=== PATIENT | male | born 1960 | race Hispanic/Latino ===

== ENCOUNTER 2017-11-23 21:56 | Inpatient (IN) | payer MEDICAID, OTHER ==
--- NOTE | 2017-11-23 22:20 | C.PDOC ---
History Of Present Illness Pt was transferred here for psychiatric admission. Pt was medically cleared at the referring facility. Time Seen by Provider: 11/23/17 22:11 Chief Complaint (Nursing): Psychiatric Evaluation History Per: Patient Onset/Duration Of Symptoms: Days Current Symptoms Are (Timing): Still Present Modifying Factor(s): Alcohol Severity: Moderate Associated Symptoms: Anxiety, Depression Additional History Per: Prior Records Past Medical History Reviewed: Historical Data, Nursing Documentation, Vital Signs Vital Signs: Last Vital Signs Temp 97.8 F 11/23/17 22:06 Pulse 71 11/23/17 22:06 Resp 20 11/23/17 22:06 BP 139/87 11/23/17 22:06 Pulse Ox 98 11/23/17 22:06 - Medical History PMH: Anxiety, COPD, Depression - [facility] Procedures PSYCHIAT DRUG THERAP NEC (06/19/13) Family History: States: Unknown Family Hx - Social History Hx Tobacco Use: Yes Hx Alcohol Use: Yes Hx Substance Use: No - Immunization History Hx Tetanus Toxoid Vaccination: Yes Hx Influenza Vaccination: Yes Hx Pneumococcal Vaccination: Yes Review Of Systems Constitutional: Negative for: Fever Cardiovascular: Negative for: Chest Pain Respiratory: Negative for: Shortness of Breath Genitourinary: Negative for: Dysuria Musculoskeletal: Negative for: Neck Pain Neurological: Negative for: Weakness Physical Exam - Physical Exam Appears: Non-toxic, No Acute Distress Skin: Normal Color, Warm, Dry, No Rash Head: Atraumatic, Normacephalic Eye(s): bilateral: PERRL, EOMI Neck: Normal ROM, Supple Cardiovascular: Rhythm Regular Respiratory: Normal Breath Sounds, No Accessory Muscle Use Gastrointestinal/Abdominal: Soft, No Tenderness Extremity: Normal ROM Neurological/Psych: Oriented x3, Normal Motor ED Course And Treatment O2 Sat by Pulse Oximetry: 98 Pulse Ox Interpretation: Normal Disposition - Disposition Disposition: HOSPITALIZED Disposition Time: 22:19 Condition: STABLE - Clinical Impression Clinical Impression: Depression Decision To Admit - Pt Status Changed To: Hospital Disposition Of: Inpatient - Admit Certification Admit to Inpatient:: After my assessment, the patient will require hospitalization for at least two midnights. This is because of the severity of symptoms shown, intensity of services needed, and/or the medical risk in this patient being treated as an outpatient. - InPatient: Physician Admission Certification: I certify that this patient requires 2 or more midnights of care for the following reason:: Psych. - . Bed Request Type: Psychiatry Admitting Physician: Hill Barrett Patient Diagnosis: Depression
--- NOTE | 2017-11-24 00:58 | PCM.BM ---
<Valentine Hoffman - Last Filed: 11/24/17 00:55> Treatment Plan Problems - Problems identified on initial assessmt Suicidal ideation Date Initiated: 11/24/17 Time Initiated: 23:30 Assessment reference: NA Status: Active Treatment assets and liabiliti Patient Assests: cooperative, ADL independent, negotiates basic needs Patient Liabilities: substance abuse - Milieu Protocol Maintain good personal hygiene: daily Encourage regular showers, daily Remind patient to perform daily oral care, daily Assist patient to perform ADL's Maintain personal safety: every shift Educate patient to report safety concerns to staff, every shift Monitor environment for contraband/sharps Medication safety: Monitor for expected outcome, potential side effects: every shift, Assess barriers to learning: every shift, Assess readiness for medication education: every shift <Niharika Wells - Last Filed: 11/26/17 15:56> Family Contact Family involvement: Patient does not wish Family/SO involvement Family contact: Patient declines to allow family contact at present - Goals for Treatment Patient goals for treatment: "I want to go to an outpatient program." Discharge/Continuing Care - Education Needs Education Needs: Patient Medication, Patient Diagnosis/Disease Process, Patient Coping Skills, Patient Community resources - Discharge Discharge Criteria: Free of Suicidal thoughts, Normal sleep pattern, Ability to care for self, No longer exhibiting s/s of withdrawal, Reduction of target symptoms Discharge to:: Home - Treatment Team Participation Discussed with Family/SO: No Was Patient/Family/SO present at Treatment Team Meeting: Yes <Hill Barrett - Last Filed: 11/30/17 11:08> - Diagnosis (1) Depression Status: Acute Interventions: 11/30/17 11:07 * Assess/adjust medications daily and /or as needed * See patient on an individual basis 7x/week to assess symptoms of depression * Monitor for side effects & effectiveness of medications * (2) Alcohol use disorder, severe, dependence Status: Acute Interventions: 11/30/17 11:08 * Assess 7x/week regarding severity of withdrawal * Educate regarding risks, benefits, side effects and alternatives of medications * Use Motivational Interviewing for abstinence * Use CBT for relapse prevention * Medication management for withdrawal symptoms * Encourage medication assisted treatment *
[2017-11-24] MEDS: Multiple Vitamins Tab PO SCH (09:46)
[2017-11-24] MEDS: Albuterol HFA 90 mcg/actuation (8 g) INH PRN (09:47)
--- NOTE | 2017-11-24 15:47 | PCM.PSYCH ---
Initial Psychiatric Evaluation - Initial Psychiatric Evaluation Type of Admission: Voluntary Legal Status: Capacity Chief Complaint (in patient's own words): "I'm feeling safe." History of Present Illness and Precipitating Events: This is a 57 y/o male, who transferred from [facility], for the treatment of depression and suicidal ideation with plan to drink himself to . Alcohol level was of 150 at [facility]. Pt has medical history of COPD, asthma, degenerated disc diseases, hypothyroidism and pneumonia (11/12 admitted at [facility] for pneumonia). Pt has 11 admission in last 3 months. Pt contracted hospital for safety. Pt reported worsening of depressed mood, with low level of energy, low self esteem, helpless, hopelessness. He is unemployed, unable to meet with his children for past 3 years. He is feeling guilty not being able to support his children. He denied suicidal thoughts after admission. He denied suicide attempts in past. He denied HI, intent or plan. Patient states that he takes about 3 pints of vodka daily. +VE CAGE questionnaire. He reported etoh withdrawal symptoms. He denies other substance abuse. Patient reports allergy to penicillin and zoloft with reaction of rashes. Per patient, he has surgical history of sutures to the left forearm from a tree fall about 10 weeks ago. Noted bruises to the lower abdomen. Patient currently unemployed and shares an apartment with 5 other people. He denied perceptual disturbances. He has anxiety issues related to alcohol use. He denied manic symptoms. Current Medications: Active Medications Generic Name Dose Route Start Last Admin Trade Name Freq PRN Reason Stop Dose Admin Albuterol 2 puff 11/23/17 23:10 11/24/17 09:47 Ventolin Hfa 90 Mcg/Actuation (8 G) INH 2 puff RQ4 PRN Administration Shortness of Breath Clonidine HCl 0.1 mg 11/23/17 23:06 Catapres PO Q4H PRN Symptoms of alcohol withdrawl Folic Acid 1 mg 11/24/17 10:00 11/24/17 09:46 Folic Acid PO 1 mg DAILY RULA Administration Lorazepam 2 mg 11/24/17 15:35 Ativan PO 11/29/17 13:59 Q4 RULA Taper Mirtazapine 30 mg 11/23/17 23:15 11/24/17 00:00 Remeron PO 30 mg HS RULA Administration Multivitamins 1 tab 11/24/17 10:00 11/24/17 09:46 Hexavitamin PO 1 tab DAILY RULA Administration Pneumococcal Polyvalent Vaccine 0.5 ml 11/27/17 10:00 Pneumovax 23 Vaccine IM 11/27/17 10:01 .ONCE ONE Sucralfate 1 gm 11/24/17 10:00 11/24/17 14:22 Carafate Tab PO 1 gm TID RULA Administration Thiamine HCl 100 mg 11/24/17 10:00 11/24/17 09:46 Vitamin B1 Tab PO 100 mg DAILY RULA Administration Trazodone HCl 50 mg 11/23/17 23:06 Desyrel PO HS PRN Insomnia Past Psychiatric History - Past Psychiatric History Previous Treatment History: Inpatient Prior Psychiatric Treatment: multiple prior admissions in [facility]: [facility] Duration: few days Nature of Treatment: detox and depression medication management History of Abuse: denied History of ETOH/Drug Use: please see HPI History of Family Illness: brother is suffering from depression Pertinent Medical Hx (Current Medical&Sleep Prob, Allergies): Allergies Allergy/AdvReac Type Severity Reaction Status Date / Time Penicillins Allergy Verified 11/23/17 22:12 sertraline [From Zoloft] Allergy Verified 11/23/17 22:12 Pepcid 11/23/17 Review of Systems - Review of Systems All systems: reviewed and no additional remarkable complaints except (please see HPI) Mental Status Examination - Personal Presentation Personal Presentation: Looks stated age, Dressed appropriate to season, No apparent handicaps Additional comments: +ve tongue fasciculation and tremors in hands, anxious - Affect Affect: Constricted - Motor Activity Motor Activity: Psychomotor Agitation - Reliability in Providing Information Reliability in Providing Information: Fair - Speech Speech: Organized - Mood Mood: Depressed, Anxious - Formal Thought Process Formal Thought Process: No Impairment - Obsessions/Compulsions Obsessions: None Compulsions: None - Cognitive Functions Orientation: Person, Place, Situation, Time Sensorium: Alert Attention/Concentration: Attentive Abstract Thinking: [place] Estimate of Intelligence: Average Judgement: Intact, as evidence by: Good judgement, Intact, as evidence by: Insight regarding need for hospitalization Memory: Recent intact, as evidence by: Ability to recall events of the day - Risk Risk: Suicidal - Strength & Assets Inventory Strength & Assets Inventory: Intelligence, Education, Employment history, Interests/hobbies, Spiritual affiliations, Cooperative - Limitations Limitations: Other (chronic alcohol use) DSM 5 DX - DSM 5 DSM 5 Diagnosis: Major depressive disorder, recurrent, moderate Alcohol use disorder, severe, dependence Alcohol withdrawal - Recommended/Plan of Treatment Treatment Recommendations and Plan of Treatment: Ativan detox Remeron for depression As needed meds and vitamins Attend groups and activities OR for abstinence and CBT for relapse prevention Support and psychoeducation Consider and encourage MAT Refer to after care 33 min Projected ELOS: 4-5 days Prognosis: good with compliance with medication
[2017-11-25] MEDS: Multiple Vitamins Tab PO SCH (09:28)
--- NOTE | 2017-11-25 14:17 | PCM.PYCHPN ---
Psychiatric Progress Note - Psychiatric Progress Note Patient seen today, length of contact: 15 minutes Patient Chief Complaint: "I'm feeling safe." Problems Identified/Issues Discussed: Pt was seen and evaluated. Chart reviewed, and nurse input received. He reported he is Fine. However, he still had depressive symptoms. He reported improvement in his withdrawal symptoms. He denied any craving for etoh. Pt is compliant with meds and denied s/e. His symptoms are improving but he still needs time to improve. Medication Change: Yes (detox changes daily) Medical Record Reviewed: Yes Mental Status Examination - Cognitive Function Orientation: Person, Place, Situation, Time Memory: Intact Attention: WNL Concentration: Poor Association: WNL Fund of Knowledge: WNL Decription of patient's judgement and insights: improving/improving - Mood Mood: Depressed, Anxious - Affect Affect: Constricted - Speech Speech: Appropriate - Formal Thought Process Formal Thought Process: No Impairment Psychotic Thoughts and Behaviors: denied - Suicidal Ideation Suicidal Ideation: No Plan: denied - Homicidal Ideation Homicidal Ideation: No Plan: denied Goal/Treatment Plan - Goal/Treatment Plan Need for Continued Stay: Severe depression anxiety, Discharge may exacerbated symptoms Progress Toward Problem(s) and Goals/Treatment Plan: Ativan detox Remeron for depression As needed meds and vitamins Attend groups and activities ID for abstinence and CBT for relapse prevention Support and psychoeducation Consider and encourage MAT - Smoking Cessation Smoking Cessation Initiated: Yes
[2017-11-26] MEDS: Multiple Vitamins Tab PO SCH (09:38)
--- NOTE | 2017-11-26 14:05 | PCM.PYCHPN ---
Psychiatric Progress Note - Psychiatric Progress Note Patient seen today, length of contact: 15 minutes Patient Chief Complaint: I'm feeling better Problems Identified/Issues Discussed: Patient was seen and evaluated at bedside. Chart reviewed and nurse input was received. He states he is feeling better with his depressive symptoms and his withdrawal symptoms. He is compliant with his medications and has not had any adverse effects. He denies suicidal or homicidal ideations and denies auditory or visual hallucinations. He states he does not want to go to rehab at this time , he simply wants to go get a job so he doesn't lose his house. Medication Change: Yes (detox changes daily) Medical Record Reviewed: Yes Mental Status Examination - Cognitive Function Orientation: Person, Place, Situation, Time Memory: Intact Attention: WNL Concentration: Poor Association: WNL Fund of Knowledge: WNL - Mood Mood: Depressed, Anxious Additional comments: Improved - Affect Affect: Constricted - Speech Speech: Appropriate - Formal Thought Process Formal Thought Process: No Impairment Psychotic Thoughts and Behaviors: denied by patient - Suicidal Ideation Suicidal Ideation: No - Homicidal Ideation Homicidal Ideation: No Goal/Treatment Plan - Goal/Treatment Plan Need for Continued Stay: Severe depression anxiety, Discharge may exacerbated symptoms Progress Toward Problem(s) and Goals/Treatment Plan: Major depressive disorder, recurrent Effexor 75mg PO daily Trazadone 50mg PO HS PRN Remeron 30mg PO HS RULA Support and psychoeducation daily Attend groups and activities After care planning by KASSIE Alcohol use disorder, severe, dependence Alcohol withdrawal Folic acid 1mg PO daily Neurontin 300mg PO TID Ativan 1mg Q4 RULA Remeron 30mg PO HS Multivitamin 1 tab PO daily Vitamin b1 100mg PO daily Support and psychoeducation daily Attend groups and activities After care planning by KASSIE PR for abstinence and CBT for relapse prevention Case discussed with Dr. Arnold Dunlap, PGY1
[2017-11-27] MEDS: Multiple Vitamins Tab PO SCH (09:12)
[2017-11-27] MEDS ORDERED: Pneumococcal 23-Valent Vaccine IM ONE (10:00)
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
[2017-11-27] MEDS: Albuterol HFA 90 mcg/actuation (8 g) INH PRN (21:18)
[2017-11-28] MEDS: Albuterol HFA 90 mcg/actuation (8 g) INH PRN (09:40)
[2017-11-28] MEDS: Multiple Vitamins Tab PO SCH (09:41)
--- NOTE | 2017-11-28 11:48 | PCM.PYCHPN ---
Psychiatric Progress Note - Psychiatric Progress Note Patient seen today, length of contact: 15 minutes Patient Chief Complaint: I'm still anxious Problems Identified/Issues Discussed: Patient was seen and evaluated at bedside. Chart reviewed and case discussed with nursing staff. He states he continues to feel anxious and depressed, although better than before. He continues to state that he does not want to be on any narcotics or addictive medications. He is compliant with medication without any adverse effects. He states he would like to continue taking Atarax if his insurance covers it. He states he was on a higher dose of Effexor in the past. He is walking outside his room, interacting with others. He is eating and sleeping well. He denies suicidal or homicidal thoughts currently. He denies auditory or visual hallucinations. Medication Change: Yes Medical Record Reviewed: Yes Mental Status Examination - Cognitive Function Orientation: Person, Place, Situation, Time Memory: Intact Attention: WNL Concentration: Poor Association: WNL Fund of Knowledge: WNL - Mood Mood: Depressed, Anxious Additional comments: Improved from before - Affect Affect: Constricted - Speech Speech: Appropriate - Formal Thought Process Formal Thought Process: No Impairment Psychotic Thoughts and Behaviors: denied by patient - Suicidal Ideation Suicidal Ideation: No - Homicidal Ideation Homicidal Ideation: No Goal/Treatment Plan - Goal/Treatment Plan Need for Continued Stay: Severe depression anxiety, Discharge may exacerbated symptoms Progress Toward Problem(s) and Goals/Treatment Plan: Major depressive disorder, recurrent Effexor 225mg PO daily Trazadone 50mg PO HS PRN Remeron 30mg PO HS RULA Support and psychoeducation daily Attend groups and activities After care planning by KASSIE Alcohol use disorder, severe, dependence Alcohol withdrawal Atarax 25mg Q6 PRN Folic acid 1mg PO daily Neurontin 300mg PO TID Ativan 1mg Q8 RULA Remeron 30mg PO HS Multivitamin 1 tab PO daily Vitamin b1 100mg PO daily Clonidine 0.1mg Q4 PRN Support and psychoeducation daily Attend groups and activities After care planning by KASSIE [place] for abstinence and CBT for relapse prevention Case discussed with Dr. Arnold Dunlap, PGY1
[2017-11-29] MEDS: Multiple Vitamins Tab PO SCH (09:24)
[2017-11-29] MEDS: Venlafaxine 75 mg ER Cap PO SCH (09:24)
[2017-11-29] MEDS: Albuterol HFA 90 mcg/actuation (8 g) INH PRN (10:53)
--- NOTE | 2017-11-29 14:54 | PCM.PYCHPN ---
Psychiatric Progress Note - Psychiatric Progress Note Patient seen today, length of contact: 15 minutes Patient Chief Complaint: "I want different medication." Problems Identified/Issues Discussed: Patient was seen and evaluated at bedside. Chart reviewed and case discussed with nursing staff. He states he continues to feel anxious and depressed, although better than before. He has been compliant with medication but states that he is no longer happy with the Atarax. He states that it keeps him up at night and that it does not help with his anxiety. Patient also states that he remembered that he was recently prescribed Levothyroxine 50 mg for his thyroid and that he still has not received cortisone cream for his rash. He is walking outside his room, interacting with others. He is eating and sleeping well. He denies suicidal or homicidal thoughts currently. He denies auditory or visual hallucinations. Medication Change: Yes Medical Record Reviewed: Yes Mental Status Examination - Cognitive Function Orientation: Person, Place, Situation, Time Memory: Intact Attention: WNL Concentration: Poor Association: WNL Fund of Knowledge: WNL - Mood Mood: Depressed, Anxious - Affect Affect: Constricted - Speech Speech: Appropriate - Formal Thought Process Formal Thought Process: No Impairment - Suicidal Ideation Suicidal Ideation: No - Homicidal Ideation Homicidal Ideation: No Goal/Treatment Plan - Goal/Treatment Plan Need for Continued Stay: Severe depression anxiety, Discharge may exacerbated symptoms
[2017-11-29] MEDS: Hydrocortisone 0.5% Cream(30 gm) TOP PRN (17:48)
[2017-11-30] MEDS: Albuterol HFA 90 mcg/actuation (8 g) INH PRN (09:37)
[2017-11-30] MEDS: Hydrocortisone 0.5% Cream(30 gm) TOP PRN (09:37)
[2017-11-30] MEDS: Venlafaxine 75 mg ER Cap PO SCH (09:38)
[2017-11-30] MEDS: Multiple Vitamins Tab PO SCH (09:38)
[2017-11-30] MEDS ORDERED: Levothyroxine 50 MCG TAB PO SCH (11:15)
[2017-11-30] MEDS: Levothyroxine 50 MCG TAB PO SCH (14:32)
[2017-12-01] MEDS: Levothyroxine 50 MCG TAB PO SCH (06:10)
[2017-12-01] MEDS: Albuterol HFA 90 mcg/actuation (8 g) INH PRN (09:42)
[2017-12-01] MEDS: Venlafaxine 75 mg ER Cap PO SCH (09:45)
[2017-12-01] MEDS: Multiple Vitamins Tab PO SCH (09:46)
[2017-12-01] MEDS: Hydrocortisone 0.5% Cream(30 gm) TOP PRN (09:48)
[2017-12-02] MEDS: Levothyroxine 50 MCG TAB PO SCH (06:08)
[2017-12-02 06:57] VITALS: RESP 20
[2017-12-02] MEDS: Multiple Vitamins Tab PO SCH (09:03)
[2017-12-02] MEDS: Venlafaxine 75 mg ER Cap PO SCH (09:03)
[2017-12-02] MEDS: Albuterol HFA 90 mcg/actuation (8 g) INH PRN (09:04)
[2017-12-02] MEDS: Hydrocortisone 0.5% Cream(30 gm) TOP PRN (09:04)
[2017-12-03] MEDS: Levothyroxine 50 MCG TAB PO SCH (06:00)
[2017-12-03] MEDS: Albuterol HFA 90 mcg/actuation (8 g) INH PRN (09:56)
[2017-12-03] MEDS: Multiple Vitamins Tab PO SCH (09:56)
[2017-12-03] MEDS: Venlafaxine 75 mg ER Cap PO SCH (09:57)
--- NOTE | 2017-12-03 14:37 | PCM.PYCHPN ---
Psychiatric Progress Note - Psychiatric Progress Note Patient seen today, length of contact: 15 minutes Patient Chief Complaint: "I want different medication." Problems Identified/Issues Discussed: Patient seen and evaluated, chart reviewed and discussed with the nurse. Patient today was pleasant and had no concerns. He was socializing with nursing staff and other patients. Patient expressed that he feels much better and denies any depressed or anxious mood. He states that he is ready to go home tomorrow in time for a [facility] appointment in [place] at 2:30 pm. He plans on beginning at [facility] on Sunday. His only complaint was that his shakes are reportedly worsening and he would like thiamine to help with this. He continued to ask about changing his Atarax to "as needed" and is concerned about ensuring his medications are accurate for discharge tomorrow. Patient's pharmacy is [facility] in [place] on [address]. Patient appears to continue to improve and will be discharged tomorrow. Medication Change: Yes Medical Record Reviewed: Yes Mental Status Examination - Cognitive Function Orientation: Person, Place, Situation, Time Memory: Intact Attention: WNL Concentration: Poor Association: WNL Fund of Knowledge: WNL - Mood Mood: Depressed, Anxious - Affect Affect: Constricted - Speech Speech: Appropriate - Formal Thought Process Formal Thought Process: No Impairment - Suicidal Ideation Suicidal Ideation: No - Homicidal Ideation Homicidal Ideation: No Goal/Treatment Plan - Goal/Treatment Plan Need for Continued Stay: Severe depression anxiety, Discharge may exacerbated symptoms
--- NOTE | 2017-12-03 15:13 | PCM.BM ---
<Niharika Wells - Last Filed: 12/03/17 15:13> Treatment Plan Problems - Problems identified on initial assessmt Suicidal ideation Date Initiated: 11/24/17 Time Initiated: 23:30 Assessment reference: NA Status: Active Treatment assets and liabiliti Patient Assests: cooperative, ADL independent, negotiates basic needs Patient Liabilities: substance abuse - Milieu Protocol Maintain good personal hygiene: daily Encourage regular showers, daily Remind patient to perform daily oral care, daily Assist patient to perform ADL's Maintain personal safety: every shift Educate patient to report safety concerns to staff, every shift Monitor environment for contraband/sharps Medication safety: Monitor for expected outcome, potential side effects: every shift, Assess barriers to learning: every shift, Assess readiness for medication education: every shift Milieu Narrative: Major depressive disorder, recurrent Effexor 225mg PO daily Trazadone 50mg PO HS PRN Remeron 30mg PO HS RULA Support and psychoeducation daily Attend groups and activities After care planning by KASSIE Alcohol use disorder, severe, dependence Alcohol withdrawal Atarax 25mg Q6 PRN Folic acid 1mg PO daily Neurontin 300mg PO TID Ativan 1mg Q8 RULA Remeron 30mg PO HS Multivitamin 1 tab PO daily Vitamin b1 100mg PO daily Clonidine 0.1mg Q4 PRN Support and psychoeducation daily Attend groups and activities After care planning by KASSIE NC for abstinence and CBT for relapse prevention Case discussed with Dr. Arnold Dunlap, PGY1 Family Contact Family involvement: Patient does not wish Family/SO involvement Family contact: Patient declines to allow family contact at present - Goals for Treatment Patient goals for treatment: "I want to go to an outpatient program." Discharge/Continuing Care - Education Needs Education Needs: Patient Medication, Patient Diagnosis/Disease Process, Patient Coping Skills, Patient Community resources - Discharge Discharge Criteria: Free of Suicidal thoughts, Normal sleep pattern, Ability to care for self, No longer exhibiting s/s of withdrawal, Reduction of target symptoms Discharge to:: Home - Treatment Team Participation Patient/Family/SO Statement: Major depressive disorder, recurrent Effexor 225mg PO daily Trazadone 50mg PO HS PRN Remeron 30mg PO HS RULA Support and psychoeducation daily Attend groups and activities After care planning by KASSIE Alcohol use disorder, severe, dependence Alcohol withdrawal Atarax 25mg Q6 PRN Folic acid 1mg PO daily Neurontin 300mg PO TID Ativan 1mg Q8 RULA Remeron 30mg PO HS Multivitamin 1 tab PO daily Vitamin b1 100mg PO daily Clonidine 0.1mg Q4 PRN Support and psychoeducation daily Attend groups and activities After care planning by KASSIE NC for abstinence and CBT for relapse prevention Case discussed with Dr. Arnold Dunlap, PGY1 Discussed with Family/SO: No Was Patient/Family/SO present at Treatment Team Meeting: Yes Treatment Plan Review - Problem Suicidal ideation Time Initiated: 23:30 - Discharge / Continuing Care Discharge to:: Home, Other Behavioral Health Services: Intensive Outpatient Health Needs: Follow up care/test, Medications/Rx, Alcohol/Drug treatment <Hill Barrett - Last Filed: 12/03/17 22:56> - Diagnosis (1) Depression Status: Acute Interventions: 12/03/17 22:55 * Assess/adjust medications daily and /or as needed * See patient on an individual basis 7x/week to assess symptoms of depression * Monitor for side effects & effectiveness of medications * (2) Alcohol use disorder, severe, dependence Status: Acute Interventions: 12/03/17 22:55 * Assess 7x/week regarding severity of withdrawal * Educate regarding risks, benefits, side effects and alternatives of medications * Use Motivational Interviewing for abstinence * Use CBT for relapse prevention * Medication management for withdrawal symptoms * Encourage medication assisted treatment *
--- NOTE | 2017-12-03 22:56 | PCM.PYCHPN ---
Psychiatric Progress Note - Psychiatric Progress Note Patient seen today, length of contact: 15 minutes Patient Chief Complaint: "I want different medication." Problems Identified/Issues Discussed: Patient seen and evaluated, chart reviewed and discussed with the nurse. Patient today was pleasant and had no concerns. He was socializing with nursing staff and other patients. Patient expressed that he feels much better and denies any depressed or anxious mood. He states that he is ready to go home tomorrow in time for a [facility] appointment in [place] at 2:30 pm. He plans on beginning at [facility] on Sunday. His only complaint was that his shakes are reportedly worsening and he would like thiamine to help with this. He continued to ask about changing his Atarax to "as needed" and is concerned about ensuring his medications are accurate for discharge tomorrow. Patient's pharmacy is [facility] in [place] on [address]. Patient appears to continue to improve and will be discharged tomorrow. Medication Change: Yes Medical Record Reviewed: Yes Mental Status Examination - Cognitive Function Orientation: Person, Place, Situation, Time Memory: Intact Attention: WNL Concentration: Poor Association: WNL Fund of Knowledge: WNL - Mood Mood: Depressed, Anxious - Affect Affect: Constricted - Speech Speech: Appropriate - Formal Thought Process Formal Thought Process: No Impairment - Suicidal Ideation Suicidal Ideation: No - Homicidal Ideation Homicidal Ideation: No Goal/Treatment Plan - Goal/Treatment Plan Need for Continued Stay: Severe depression anxiety, Discharge may exacerbated symptoms
[2017-12-04] MEDS: Levothyroxine 50 MCG TAB PO SCH (06:45)
[2017-12-04 07:01] VITALS: BP 111/67; PULSE 60; TEMP 97.6; O2SAT 99
[2017-12-04] MEDS: Multiple Vitamins Tab PO SCH (09:41)
[2017-12-04] MEDS: Venlafaxine 75 mg ER Cap PO SCH (09:41)
[2017-12-04] MEDS: Hydrocortisone 0.5% Cream(30 gm) TOP PRN (10:37)
[2017-12-04] MEDS: Albuterol HFA 90 mcg/actuation (8 g) INH PRN (10:37)
--- NOTE | 2017-12-04 11:34 | PCM.PYCHDC ---
Mental Status Examination - Mental Status Examination Orientation: Person, Place, Situation, Time Memory: Intact Mood: Neutral Affect: Constricted Speech: Soft Attention: WNL Concentration: WNL Association: WNL Fund of Knowledge: WNL Formal Thought Process: No Impairment Description of patient's judgement and insight: good, fair Psychotic Thoughts and Behaviors: denies any AVH Suicidal Ideation: No Current Homicidal Ideation?: No Discharge Summary - Discharge Note Reason for Hospitalization: This is a 57 y/o male, who transferred from [facility], for the treatment of depression and suicidal ideation with plan to drink himself to . Alcohol level was of 150 at [facility]. Pt has medical history of COPD, asthma, degenerated disc diseases, hypothyroidism and pneumonia (11/12 admitted at [facility] for pneumonia). Pt has 11 admission in last 3 months. Pt contracted hospital for safety. Pt reported worsening of depressed mood, with low level of energy, low self esteem, helpless, hopelessness. He is unemployed, unable to meet with his children for past 3 years. He is feeling guilty not being able to support his children. He denied suicidal thoughts after admission. He denied suicide attempts in past. He denied HI, intent or plan. Patient states that he takes about 3 pints of vodka daily. +VE CAGE questionnaire. He reported etoh withdrawal symptoms. He denies other substance abuse. Patient reports allergy to penicillin and zoloft with reaction of rashes. Per patient, he has surgical history of sutures to the left forearm from a tree fall about 10 weeks ago. Noted bruises to the lower abdomen. Patient currently unemployed and shares an apartment with 5 other people. He denied perceptual disturbances. He has anxiety issues related to alcohol use. He denied manic symptoms. Psychiatric History (includes Medical, Family, Personal Hx): detox and depression medication management Consultations:: List each consultation separately and include: 1. Reason for request. 2. Findings. 3. Follow-up Summary of Hospital Course include:: 1. Description of specific treatment plan utilized for patients during their course of treatmen. 2. Summarize the time- course for resolution of acute symptoms and/or regressed behaviors. 3. Describe issues identified and worked on during hospitalization. 4. Describe medication utilized. 5. Describe medical problems identified and treated. 6. Reassessment of suicide risk - Diagnosis (1) Depression Current Visit: Yes Status: Acute (2) Alcohol use disorder, severe, dependence Current Visit: Yes Status: Acute - Final Diagnosis (DSM 5) Condition upon Discharge: STABLE DSM 5: Major depressive disorder, recurrent, moderate Alcohol use disorder, severe, dependence Alcohol withdrawal Disposition: HOME/ ROUTINE Prescriptions/Medication Reconciliation: Gabapentin [Neurontin] 600 mg PO TID #90 tab hydrOXYzine HCl [Atarax] 50 mg PO TID #90 tab QUEtiapine [Seroquel] 200 mg PO HS #30 tab Venlafaxine [Effexor XR] 225 mg PO DAILY #30 cer
== END 2017-12-04 13:00 | disposition home or self-care (01) | DRG 430 ==
LOC: C.ER 21:56 → C.5E 22:20
PROVIDERS: ADMIT Psychiatry & Neurology Psychiatry; ATTEND Psychiatry & Neurology Psychiatry
PROC: GZ3ZZZZ Medication Management (ICD-10-PCS; principal; 2017-11-23)
PROC: HZ2ZZZZ Detoxification Services for Substance Abuse Treatment (ICD-10-PCS; 2017-11-23)
PROC: HZ59ZZZ Individual Psychotherapy for Substance Abuse Treatment, Supportive (ICD-10-PCS; 2017-11-23)
PROC: HZ90ZZZ Pharmacotherapy for Substance Abuse Treatment, Nicotine Replacement (ICD-10-PCS; 2017-11-23)
PROC: GZHZZZZ Group Psychotherapy (ICD-10-PCS; 2017-11-23)
PROC: GZ56ZZZ Individual Psychotherapy, Supportive (ICD-10-PCS; 2017-11-23)
DX: F33.1 Major depressive disorder, recurrent, moderate (principal); F10.239 Alcohol dependence with withdrawal, unspecified; R45.851 Suicidal ideations; F41.9 Anxiety disorder, unspecified; F17.200 Nicotine dependence, unspecified, uncomplicated; J44.9 Chronic obstructive pulmonary disease, unspecified; E03.9 Hypothyroidism, unspecified; Z81.8 Family history of other mental and behavioral disorders; Z88.0 Allergy status to penicillin